=== PATIENT | male | born 1935 | race Caucasian/White ===

== ENCOUNTER → 2021-09-04 | Outpatient (CLI) | payer MEDICARE ==
[~2021-09-04] VITALS: Ht 185.4 cm; Wt 72.4 kg
[~2021-09-04] MED LIST: ALLO300T2 PO; AMIO200T68 PO; LISI1TAB51 PO; PANT40TA54 PO; RIVA20TA PO
[2021-09-04 16:19] LABS: BASOPHILS % (AUTO) 0.7 % (0.0-5.0); EOSINOPHILS % (AUTO) 2.6 % (0.0-8.0); HEMATOCRIT 35.7 % (42-54); LYMPHOCYTES % (AUTO) 20.2 % (21.0-51.0); MEAN CORPUSCULAR HGB CONC 32.8 g/dL (32.0-36.0); MEAN CORPUSCULAR VOLUME 94.7 fL (79-99); MONOCYTES % (AUTO) 12.6 % (3.0-13.0); NEUTROPHILS % (AUTO) 63.7 % (40.0-77.0); PLATELET COUNT (AUTO) 171 K/uL (130-400); RED BLOOD CELL COUNT(AUTO) 3.77 MIL/uL (4.50-6.20); RED CELL DISTRIBUTION WIDTH 14.6 % (11.0-15.5); WHITE BLOOD COUNT (AUTO) 5.9 K/uL (4.8-10.8)
[2021-09-04 16:27] LABS: CREATININE 1.4 mg/dL (0.5-1.5); POTASSIUM 4.5 mmol/L (3.5-5.1)
[2021-09-11 09:59] VITALS: BP 149/67
== END | disposition home or self-care (01) ==
LOC: DAH 10:00 → EDSTATUS 09-12 07:30
PROVIDERS: ATTEND Otolaryngology Plastic Surgery within the Head & Neck
DX: Z01.818 Encounter for other preprocedural examination (principal); H70.11 Chronic mastoiditis, right ear; I48.91 Unspecified atrial fibrillation; I49.3 Ventricular premature depolarization; R94.31 Abnormal electrocardiogram [ECG] [EKG]; Z20.822 Contact with and (suspected) exposure to COVID-19
CPT/HCPCS: 36415; 80048; 85025; 87635; 93005; A6260; C9803

== ENCOUNTER 2021-09-19 07:56 | Day surgery (SDC) | payer MEDICARE ==
[2021-09-18 13:44] LABS: BASOPHILS % (AUTO) 0.6 % (0.0-5.0); EOSINOPHILS % (AUTO) 2.9 % (0.0-8.0); HEMATOCRIT 35.6 % (42-54); LYMPHOCYTES % (AUTO) 16.6 % (21.0-51.0); MEAN CORPUSCULAR HGB CONC 32.3 g/dL (32.0-36.0); MONOCYTES % (AUTO) 10.3 % (3.0-13.0); NEUTROPHILS % (AUTO) 69.3 % (40.0-77.0); PLATELET COUNT (AUTO) 173 K/uL (130-400); RED BLOOD CELL COUNT(AUTO) 3.83 MIL/uL (4.50-6.20); RED CELL DISTRIBUTION WIDTH 14.3 % (11.0-15.5); WHITE BLOOD COUNT (AUTO) 6.6 K/uL (4.8-10.8)
[2021-09-18 13:52] LABS: CREATININE 1.6 mg/dL (0.5-1.5); POTASSIUM 5.4 mmol/L (3.5-5.1)
[2021-09-18 15:42] VITALS: BP 174/66
[2021-09-19] VITALS (17 sets, daily range): BP systolic 135–149; BP diastolic 62–86
[~2021-09-19] VITALS: Ht 185.4 cm; Wt 71.4 kg
[~2021-09-19 07:56] MED LIST changes: -AMIO200T68 PO; +AMLO-257 PO; +ATOR10 PO; -LISI1TAB51 PO; +LOSA25TA41 PO; +METO-391 PO; -PANT40TA54 PO; +RIVA15TA PO; -RIVA20TA PO
[2021-09-19] MEDS ORDERED: LACTATED RINGERS 1000ML 1,000 ML IV ONE (08:04)
[2021-09-19] MEDS ORDERED: LIDOCAINE 1%-EPI 1:100,000 20 ML VIAL IJ ONE (10:21)
[2021-09-19] MEDS ORDERED: EPINEPHRINE 1 MG/ML 30ML VIAL IJ ONE (10:22)
== END 2021-09-19 14:20 | disposition home or self-care (01) ==
LOC: DAH 07:56
PROVIDERS: ATTEND Otolaryngology Plastic Surgery within the Head & Neck
DX: H70.11 Chronic mastoiditis, right ear (principal); Z20.822 Contact with and (suspected) exposure to COVID-19; H72.91 Unspecified perforation of tympanic membrane, right ear; I25.10 Atherosclerotic heart disease of native coronary artery without angina pectoris; I10 Essential (primary) hypertension; I25.2 Old myocardial infarction; I48.91 Unspecified atrial fibrillation; Z98.890 Other specified postprocedural states; Z79.899 Other long term (current) drug therapy; Z79.01 Long term (current) use of anticoagulants
CPT/HCPCS: 36415; 69645; 80048; 85025; 87635; 93005; A4215; A4221; A4222; A4223; A4452; A4649; A4663; A6260; A6446; C9803; J0171; J3490; J7040; J7120